=== PATIENT | female | born 1985 | race Caucasian/White ===

== ENCOUNTER 2022-02-22 20:48 | Emergency (ER) | payer MEDICAID ==
[~2022-02-22] VITALS: Ht 162.6 cm; Wt 57.0 kg
[2022-02-22 21:11] VITALS: BP 138/72
[2022-02-23 00:19] LABS: CLARITY URINE CLOUDY (CLEAR); COLOR URINE YELLOW (YELLOW); KETONES URINE TRACE (NEGATIVE); LEUKOCYTE ESTERASE URINE NEGATIVE (NEGATIVE); NITRITE URINE NEGATIVE (NEGATIVE); OCCULT BLOOD URINE NEGATIVE (NEGATIVE); PH URINE 5.5 (4.5-8.0); PROTEIN URINE TRACE (NEGATIVE); SPECIFIC GRAVITY URINE 1.029 (1.005-1.030); UROBILINOGEN URINE 0.2 E.U./dL (0.2-1.0)
[2022-02-23] MEDS ORDERED: LORAZEPAM 1MG TABLET PO ONE (01:00)
[2022-02-23] MEDS ORDERED: DOXY-326 PO (01:12)
[2022-02-23] MEDS ORDERED: LORA-250 PO (01:12)
== END 2022-02-23 01:27 | disposition home or self-care (01) ==
LOC: ER 20:48
DX: F41.9 Anxiety disorder, unspecified (principal); Z59.00 Homelessness unspecified
CPT/HCPCS: 81003; 81025; 99283

== ENCOUNTER 2022-02-23 10:25 | Emergency (ER) | payer MEDICAID ==
[~2022-02-23] VITALS: Ht 162.6 cm; Wt 57.0 kg
[~2022-02-23 10:25] MED LIST: DOXY-326 PO; LORA-250 PO
[2022-02-23 10:39] VITALS: BP 137/109
== END 2022-02-23 15:56 | disposition left against medical advice (07) ==
LOC: ER 11:48
DX: Z53.21 Procedure and treatment not carried out due to patient leaving prior to being seen by health care provider (principal)